=== PATIENT | male | born 1955 | race African-American/Black ===

== ENCOUNTER 2020-08-29 09:18 | Emergency (ER) | payer MEDICARE ==
[~2020-08-29] VITALS: Ht 160 cm; Wt 86.0 kg
--- NOTE | 2020-08-29 09:52 | PHYS DOC ---
Past Medical History Past Medical History: No Pertinent History Past Surgical History: No Surgical History Smoking Status: Current Every Day Smoker Alcohol Use: Occasionally Drug Use: None General Adult EDM: Chief Complaint: ANKLE PROBLEM HPI: HPI: 65-year-old male presents emergency department today with left ankle injury. He was on a ladder doing tree work when he fell approximately 4 feet and injured his left leg. He denies head injury loss of conscious. He is not on blood thinners. He denies any other injuries. He has a throbbing aching pain in his left ankle that is nonradiating. He put duct tape around it to secure it. Review of systems negative for head injury neck pain chest pain shortness of breath chest wall injury back pain back injury hip pain. All other review of systems negative. ED course: 65-year-old male presenting the emergency department today with left ankle injury. No other injuries identified on secondary survey. X-rays obtained. X-rays show bilateral malleolar fracture. There is a small puncture wound concerning for possible open fracture. We placed Betadine overlying this wound area and splinted the patient. IV Ancef given to the patient. I called our orthopedic surgeon Dr. Varela who evaluated the patient. Plan is to discharge the patient from the emergency department and for the patient go directly to the operating room for surgical repair. Patient is placed in a splint in the emergency department. Heart Score: Risk Factors: Risk Factors: DM, Current or recent (<one month) smoker, HTN, HLP, family history of CAD, obesity. Risk Scores: Score 0 - 3: 2.5% MACE over next 6 weeks - Discharge Home Score 4 - 6: 20.3% MACE over next 6 weeks - Admit for Clinical Observation Score 7 - 10: 72.7% MACE over next 6 weeks - Early Invasive Strategies Allergies: Allergies: Allergies Coded Allergies Type Severity Reaction Last Updated Verified No Known Drug Allergies 08/29/20 No Physical Exam: PE: Constitutional: Well developed, well nourished, no acute distress, non-toxic appearance. [] HENT: Normocephalic, atraumatic, bilateral external ears normal, oropharynx moist, no oral exudates, nose normal. [] Eyes: PERRLA, EOMI, conjunctiva normal, no discharge. [] Neck: Normal range of motion, no tenderness, supple, no stridor. [] Cardiovascular:Heart rate regular rhythm, no murmur [] Lungs & Thorax: Bilateral breath sounds clear to auscultation [] Abdomen: Bowel sounds normal, soft, no tenderness, no masses, no pulsatile masses. [] Skin: Warm, dry, no erythema, no rash. [] Back: No tenderness, no CVA tenderness. [] Extremities: The patient's left lower extremity was initially in duct tape since the injury and since has swollen. Very difficult to get the duct tape off because it was t oo tight. After we removed the duct tape which was circumferential around the ankle, the patient has swelling of the ankle which is tender on both sides and the lay lie. The ankle is deformed. There are 2 abrasions one overlying the area where the malleolar fracture is and 1 about 4 to 6 cm above that on the medial side which is not near a fracture pattern. No bone fragments visible. There are small hemorrhagic blisters around the place where the duct it was a tightest. Palpable pulse distally with 2-second cap refill. Normal motor and sensory function of the foot. The knee proximally is nontender. The foot is nontender to palpation. Neurologic: Alert and oriented X 3, normal motor function, normal sensory function, no focal deficits noted. [] Psychologic: Affect normal, judgement normal, mood normal. [] EKG: EKG: [] Radiology/Procedures: Radiology/Procedures: [] Course & Med Decision Making: Course & Med Decision Making Pertinent Labs and Imaging studies reviewed. (See chart for details) [] Dragon Disclaimer: Dragon Disclaimer: This electronic medical record was generated, in whole or in part, using a voice recognition dictation system. Departure Departure Impression: Primary Impression: Ankle fracture, left Additional Impression: Bimalleolar fracture of left ankle Disposition: 01 DC HOME SELF CARE/HOMELESS (To the OR for surgical treatment.) Condition: STABLE Referrals: EAGLE VARELA MD Patient Instructions: Ankle Fracture Additional Instructions: Follow-up with your ORTHO in 1-2 days. Return to the emergency department if you have any new or concerning findings. JAMEY MICHEL MD Aug 29, 2020 09:52
--- NOTE | 2020-08-29 10:07 | RAD ---
Ankle 3 views. HISTORY: Pain, injury 3 views were taken of the left ankle. There is a bimalleolar fracture with displaced fractures of the medial and lateral malleolus. The talus is subluxed laterally relative to the tibia. IMPRESSION: 1. Displaced bilateral malleolar fractures of the left ankle. Electronically signed by: Jose Graf MD (08/29/2020 10:05 AM) [id number]
[2020-08-29] MEDS ORDERED: ceFAZolin SODIUM 1 GM in IV DEXTROSE 5% 50 ML IV ONE (10:15)
[2020-08-29] MEDS ORDERED: ceFAZolin SODIUM IV Push 1 GM VIAL. IVP ONE (10:30)
[2020-08-29] MEDS ORDERED: PROCHLORPERAZINE 10 MG/2 ML VIAL. IV PRN (10:45)
[2020-08-29] MEDS ORDERED: fentaNYL PF VIAL 100 MCG/2 ML VIAL IV PRN ×2 (10:45)
[2020-08-29] MEDS ORDERED: MORPHINE SULFATE 2 MG/ML VIAL. IV PRN (10:45)
[2020-08-29] MEDS ORDERED: ONDANSETRON PF 4 MG/2 ML VIAL. IV PRN (10:45)
[2020-08-29] MEDS ORDERED: IV RINGERS,LACTATED 1000ML 1,000 ML IV SCH (10:45)
[2020-08-29] MEDS ORDERED: HYDROmorphone 2 MG/ML VIAL IV PRN (10:45)
[2020-08-29] MEDS ORDERED: LIDOCAINE 1% PF 2 ML VIAL. ID PRN (10:45)
--- NOTE | 2020-08-29 10:59 | CONS ---
DATE OF CONSULTATION: 08/29/2020 ORTHOPEDIC EMERGENCY DEPARTMENT CONSULTATION AND PREOPERATIVE HISTORY AND PHYSICAL REQUESTING PHYSICIAN: Dr. Ezequiel Snider. REASON FOR CONSULTATION: Left ankle fracture. HISTORY OF PRESENT ILLNESS: The patient is a 65-year-old male who reports an injury to his left ankle yesterday. He was up on a ladder, trimming a tree and fell about 4 feet, landed on his left ankle, had immediate onset of pain and deformity, swelling since then and has been painful to try and put any pressure on. He is actually coming in the next morning and had tried to stabilize the ankle and splinted with some duct tape. He has severe pain with any range of motion. He denies any loss of consciousness or hit his head and really is healthy. PAST MEDICAL AND SURGICAL HISTORY: Denies any significant medical history or surgical history. SOCIAL HISTORY: He does smoke half pack per day, occasional social alcohol use. Denies drug use. ALLERGIES: He has no known drug allergies. CURRENT MEDICATIONS: No current medications. REVIEW OF SYSTEMS: He denies any head injury or loss of consciousness, otherwise negative review of systems. He really denies any other injury, neck or back pain, focal weakness, numbness, tingling or radiating pain in the extremities. Denies any visual changes, headache, chest pain, shortness of breath or other recent fever, chills or other constitutional symptoms. PHYSICAL EXAMINATION: HEENT: Atraumatic, normocephalic. HEART: Regular rate and rhythm. LUNGS: Clear to auscultation bilaterally. ABDOMEN: Benign. EXTREMITIES: Examination of the left lower extremity reveals obvious deformity and swelling to the left leg while swelling is only moderate. He does have a little bit of tiny punctate blistering to his skin over the medial aspect of the ankle. No clear skin deficit is noted. He has gross instability, but can wiggle his toes and distal capillary refill and sensation are intact. He has normal examination of the contralateral ankle, bilateral hips and knees. IMAGING: X-rays show displaced bimalleolar ankle fracture with lateral displacement of all the fragments. IMPRESSION: Left bimalleolar ankle fracture. TREATMENT PLAN: I went over with him the inherent instability of this injury and the recommended operative treatment. He is n.p.o. since last night and is thirsty and hungry, but otherwise really medically stable. I talked to him about risks, benefits of postoperative course of operative treatment including possibility of infection, nonhealing, premature arthritis, medical or other anesthetic complications among others and the expected slower healing because of his smoking and recommended that he cut down or quit if possible. All his questions were answered and we will proceed with a planned outpatient ORIF of bimalleolar ankle fracture as the operating room is available. EAGLE WASHINGTON MD DR: GARRISON/vivek JOB#: [id number] / [id number]
[2020-08-29] MEDS ORDERED: ASPI-630 PO (12:52)
[2020-08-29] MEDS ORDERED: LIDOCAINE 2% PF 5 ML VIAL. ONE (13:16)
[2020-08-29] MEDS ORDERED: PROPOFOL 10 MG/ML (20ML) VIAL. IV ONE ×2 (13:16→16:41)
[2020-08-29] MEDS ORDERED: fentaNYL PF VIAL 100 MCG/2 ML VIAL ONE ×2 (13:17→16:17)
[2020-08-29] MEDS ORDERED: MIDAZOLAM HCL/PF 2 MG/2 ML VIAL. ONE (15:35)
[2020-08-29] MEDS ORDERED: ceFAZolin SODIUM IV Push 1 GM VIAL. IVP PRN (15:45)
[2020-08-29] MEDS ORDERED: OXYC1TAB19 PO (15:56)
--- NOTE | 2020-08-29 15:58 | DISCH ---
DISCHARGE INSTRUCTIONS Condition on Discharge Condition on Discharge: Stable Activity After Discharge Activity Instructions for Disc: Other, see below (May do leg lifts wiggle toes keep leg elevated to help with swelling) Weight Bearing Status after Di: Non weight bearing Diet after Discharge Diet after Discharge: Regular Wound Incision Care Wound/Incision Care: Ice to area for comfort, Keep wound elevated, Do not change dressing Contacting the DRBritany after DC Call your doctor for: Concerns you may have Follow-Up Follow up with: Dr. Varela 10 days Treatment/Equipment after DC Adaptive Equipment Issued: EAGLE Barajas MD Aug 29, 2020 15:58
[2020-08-29] MEDS ORDERED: DEXAMETHASONE SOD PHOS 4 MG/ML VIAL ONE (16:10)
[2020-08-29] MEDS ORDERED: SEVOFLURANE 61 TO 120 MINUTES. IH ONE (16:10)
[2020-08-29] MEDS ORDERED: ONDANSETRON PF 4 MG/2 ML VIAL. ONE (16:10)
[2020-08-29] MEDS ORDERED: oxyCODONE/APAP 7.5/325 1 TAB TABLET PO ONE (17:15)
--- NOTE | 2020-08-29 17:33 | PDOC4 ---
Operative Note Operative Note Date of surgery: 08/29/2020 Preoperative diagnosis: Displaced left bimalleolar ankle fracture Postoperative diagnosis: Same Operative procedure: Operative reduction internal fixation left bimalleolar ankle fracture Surgeon: Avery Anesthesia: General Estimated blood loss: 10 cc Complications: None Operative indications: Please see my dictated emergency department orthopedic consultation for detailed operative indications and note that I covered with him possible risks of delayed or nonhealing infection nerve or blood vessel damage medical or other anesthetic complications among others and covered the necessity of nonweightbearing for an estimated period of 6 weeks depending on healing all his questions were answered he wishes to proceed with surgical evaluation and treatment. Operative text: Patient was identified procedure verified patient placed in the supine position on the operating table. After adequate amounts of general anesthesia were administered the left lower extremity was prepped and draped in standard sterile fashion with a thigh tourniquet. After timeout was performed patient procedure identified and verified left lower extremity was exsanguinated by Esmarch bandage tourniquet inflated to 300 mmHg curvilinear incision was made over the medial malleolus subperiosteal dissection was carried out and with anatomic reduction carried out 2 guidewires were placed across the fracture site and distal cortex was opened with a cannulated drill and a total of 2 size 46 partially-threaded 4.0 stainless steel cannulated screws were placed across the joint and obtained excellent compression with anatomic reduction. A lateral incision was made and subperiosteal dissection carried out of the distal fibula and after anatomic reduction carried out a 6-hole Alma distal fibular locking plate was placed and a nonlocking cortical shaft screw was first placed locking screws were placed in the distal fragment and the remainder of shaft fixation was carried out with nonlocking screws proximally. Excellent anatomic reduction of the ankle joint mortise was noted under multiple fluoroscopic views. Irrigation carried out normal saline solution closure accomplished with buried Vicryl suture and skin closure with davi sterile dressings were applied followed by well-padded Ortho-Glass splint. Toes were noted be warm pink on de flation of the tourniquet patient went to recovery room in stable condition having tolerated the procedure well EAGLE WASHINGTON MD Aug 29, 2020 17:33
[2020-08-29 18:16] VITALS: BP 143/76
== END 2020-08-29 18:50 | disposition home or self-care (01) ==
LOC: ER 09:18
DX: S82.842A Displaced bimalleolar fracture of left lower leg, initial encounter for closed fracture (principal); Z20.828 Contact with and (suspected) exposure to other viral communicable diseases; F17.200 Nicotine dependence, unspecified, uncomplicated; Z79.82 Long term (current) use of aspirin; Z79.899 Other long term (current) drug therapy; W11.XXXA Fall on and from ladder, initial encounter; Y93.89 Activity, other specified; Y92.89 Other specified places as the place of occurrence of the external cause; Y99.8 Other external cause status
CPT/HCPCS: 27814; 29515; 73610; 76000; 87426; 96361; 96374; 96375; 96376; 99285; C1713; C9803; J0690; J1100; J2250; J2405; J2704; J3010; J7120; U0003